=== PATIENT | male | born 1995 ===

== ENCOUNTER 2022-08-30 12:48 | Emergency (ER) | payer OTHER ==
[~2022-08-30] VITALS: Ht 190 cm; Wt 141.0 kg
--- NOTE | 2022-08-30 13:12 | ED Abdominal Pain ---
General Chief Complaint: Abdominal/GI Problems Stated Complaint: ABD AND LOWER BACK PAIN Nursing Triage Note: Pt ambulates to ER with c/o RLQ pain. Patient states he was at work when it started about 30 minutes ago. Pain radiates right lower back area and right groin area. Source of Information: Patient Exam Limitations: No Limitations History of Present Illness Date Seen by Provider: Aug 30, 2022 Time Seen by Provider: 13:00 Initial Comments Patient provides history. Patient is a previous healthy 19-year-old male who presents to the emergency department for evaluation of right flank and right abdominal pain that began approximately 30 to 45 minutes prior to arrival. Patient states the pain was acute in onset and very severe. He states the pain is somewhat better at the time of my exam. Denies any alleviating or aggravating factors. States he had some nausea initially but that has since resolved. Patient was able to urinate after the pain started and denies seeing any blood in the urine. Patient denies any injury to the affected area prior to onset of pain. He has not taken any medications for the symptoms since they began. Denies any history of similar pain. Allergies and Home Medications Allergies Coded Allergies: Penicillins (Verified Allergy, Unknown, 08/30/22) Patient Home Medication List Home Medication List Reviewed: Yes Review of Systems Review of Systems Constitutional: no symptoms reported EENTM: No Symptoms Reported Respiratory: No Symptoms Reported Cardiovascular: No Symptoms Reported Gastrointestinal: See HPI, Abdominal Pain, Nausea Genitourinary: See HPI, Flank Pain Musculoskeletal: no symptoms reported Skin: no symptoms reported Psychiatric/Neurological: No Symptoms Reported Endocrine: No Symptoms Reported Hematologic/Lymphatic: No Symptoms Reported Past Ygyusji-Hkhubx-Xuoheb Hx Patient Social History Tobacco Use?: No Substance use?: No Alcohol Use?: Yes Alcohol Frequency: Once in a while Physical Exam Vital Signs Vital Signs - First Documented 08/30/22 12:56 Temp 36.3 Pulse 86 Resp 24 B/P (MAP) 171/130 (144) Pulse Ox 98 O2 Delivery Room Air Capillary Refill : Less Than 3 Seconds Height/Weight/BMI Height: '" Weight: lbs. oz. kg; 39.00 BMI Method: General Appearance: WD/WN, no apparent distress HEENT: PERRL/EOMI, normal ENT inspection, TMs normal, pharynx normal Neck: non-tender, full range of motion, supple, normal inspection Respiratory: chest non-tender, lungs clear Cardiovascular: regular rate, rhythm Gastrointestinal: normal bowel sounds, soft, tenderness Neurologic/Psychiatric: no motor/sensory deficits, alert, normal mood/affect, oriented x 3 Skin: normal color, warm/dry Progress/Results/Core Measures Results/Orders Lab Results Laboratory Tests Test 08/30/22 13:15 08/30/22 13:56 Range/Units White Blood Count 10.8 4.3-11.0 10^3/uL Red Blood Count 5.18 4.30-5.52 10^6/uL Hemoglobin 14.9 13.3-17.7 g/dL Hematocrit 43 40-54 % Mean Corpuscular Volume 84 80-99 fL Mean Corpuscular Hemoglobin 29 25-34 pg Mean Corpuscular Hemoglobin Concent 34 32-36 g/dL Red Cell Distribution Width 12.8 10.0-14.5 % Platelet Count 293 130-400 10^3/uL Mean Platelet Volume 9.5 9.0-12.2 fL Immature Granulocyte % (Auto) 1 % Neutrophils (%) (Auto) 65 42-75 % Lymphocytes (%) (Auto) 25 12-44 % Monocytes (%) (Auto) 7 0-12 % Eosinophils (%) (Auto) 1 0-10 % Basophils (%) (Auto) 1 0-10 % Neutrophils # (Auto) 7.0 1.8-7.8 X 10^3 Lymphocytes # (Auto) 2.7 1.0-4.0 X 10^3 Monocytes # (Auto) 0.8 0.0-1.0 X 10^3 Eosinophils # (Auto) 0.1 0.0-0.3 10^3/uL Basophils # (Auto) 0.1 0.0-0.1 10^3/uL Immature Granulocyte # (Auto) 0.1 0.0-0.1 10^3/uL Sodium Level 142 135-145 MMOL/L Potassium Level 3.7 3.6-5.0 MMOL/L Chloride Level 107 98-107 MMOL/L Carbon Dioxide Level 27 21-32 MMOL/L Anion Gap 8 5-14 MMOL/L Blood Urea Nitrogen 16 7-18 MG/DL Creatinine 1.08 0.60-1.30 MG/DL Estimat Glomerular Filtration Rate 95 BUN/Creatinine Ratio 15 Glucose Level 134 H 70-105 MG/DL Calcium Level 9.8 8.5-10.1 MG/DL Corrected Calcium 8.5-10.1 MG/DL Total Bilirubin 0.7 0.1-1.0 MG/DL Aspartate Amino Transf (AST/SGOT) 35 H 5-34 U/L Alanine Aminotransferase (ALT/SGPT) 72 H 0-55 U/L Alkaline Phosphatase 60 40-136 U/L Total Protein 7.8 6.4-8.2 GM/DL Albumin 4.7 H 3.2-4.5 GM/DL Urine Color YELLOW Urine Clarity CLEAR Urine pH 5.5 5-9 Urine Specific [place] >=1.030 1.016-1.022 Urine Protein TRACE H NEGATIVE Urine Glucose (UA) NEGATIVE NEGATIVE Urine Ketones NEGATIVE NEGATIVE Urine Nitrite NEGATIVE NEGATIVE Urine Bilirubin NEGATIVE NEGATIVE Urine Urobilinogen 0.2 < = 1.0 MG/DL Urine Leukocyte Esterase NEGATIVE NEGATIVE Urine RBC (Auto) 3+ H NEGATIVE Urine RBC 50-100 H /HPF Urine WBC RARE /HPF Urine Crystals NONE /LPF Urine Bacteria TRACE /HPF Urine Casts NONE /LPF Urine Mucus SMALL H /LPF Urine Culture Indicated NO My Orders Orders - MELANIE KAISER [employer] Cbc With Automated Diff (08/30/22 13:06) Comprehensive Metabolic Panel (08/30/22 13:06) Iv/Invasive Line Insertion .IV INSERT (08/30/22 13:06) Urinalysis (08/30/22 13:06) Ct Abd/Pelvis Wo(Kidney Stone) (08/30/22 13:06) Ketorolac Injection (Toradol Injection) (08/30/22 13:15) Ns Iv 1000 Ml (Sodium Chloride 0.9%) (08/30/22 13:15) Medications Given in ED Current Medications Medications Dose Ordered Sig/Shari Route Start Time Stop Time Status Last Admin Dose Admin Ketorolac Tromethamine 15 mg ONCE ONCE IVP 08/30/22 13:15 08/30/22 13:16 DC 08/30/22 13:21 15 MG Vital Signs/I&O 08/30/22 12:56 Temp 36.3 Pulse 86 Resp 24 B/P (MAP) 171/130 (144) Pulse Ox 98 O2 Delivery Room Air Blood Pressure Mean: 144 Progress Progress Note : Progress Note Patient is nontoxic and well-hydrated on exam. Vital signs are reassuring although there is some moderate hypertension noted. Patient was ambulatory to the room without issue. Patient does have some tenderness to palpation about the lateral right abdomen and right lower quadrant. No bulge or other findings suspicious for inguinal hernia noted on exam. Patient denies any radiation into the scrotum and denies any scrotal redness/swelling. Orders placed for CBC, CMP, urinalysis, CT of the abdomen pelvis, and IV dose of ketorolac as well as normal saline bolus. CBC is unremarkable. CMP without any significant abnormality. Urinalysis notable for hematuria. CT of the abdomen and pelvis reveals right proximal ureteral stone. No significant hydronephrosis noted. There is no evidence of any kidney dysfunction on laboratory evaluation. Patient had marked improvement in the pain with the dose of ketorolac. I discussed supportive care and anticipatory guidance. Patient will be discharged home with a prescription for analgesia, antiemetics, and Flomax. Patient given a urine strainer. Follow-up with PCP. Return precautions for urgent symptomology discussed. Patient verbalized understanding. Departure Impression Primary Impression: Right ureteral calculus Disposition: HOME, SELF-CARE Condition: Stable Departure-Patient Inst. Decision time for Depature: 14:15 Referrals: NO,LOCAL PHYSICIAN (PCP/Family) Primary Care Physician Patient Instructions: Kidney Stone, Adult ED Scripts Hydrocodone Bit/Acetaminophen (HYDROcodone/APAP 5 MG/325 MG TAB) 1 Tab Tab 1 TAB PO Q6H PRN for PAIN-BREAKTHROUGH for 3 Days, #12 TAB 0 Refills Prov: MELANIE KAISER APRN 08/30/22 Ondansetron (Ondansetron Odt) 4 Mg Tab.rapdis 4 MG SL Q4H PRN for NAUSEA/VOMITING for 3 Days, #18 TAB 0 Refills Prov: KAISERMELANIE WOOTEN APRN 08/30/22 Tamsulosin HCl (Flomax) 0.4 Mg Cap 0.4 MG PO DAILY for 5 Days, #5 CAP Prov: MELANIE KAISER APRN 08/30/22 Ibuprofen (Ibuprofen) 600 Mg Tablet 600 MG PO Q6H PRN for PAIN-MILD for 5 Days, #20 TAB 0 Refills Prov: MELANIE KAISER APRN 08/30/22 Work/School Note: Work Release Form Date Seen in the Emergency Department: Aug 30, 2022 Return to Work: Aug 31, 2022 MELANIE KAISER APRN Aug 30, 2022 13:12
[2022-08-30] MEDS ORDERED: NS IV 1000 ML 1,000 ML IV SCH (13:15)
[2022-08-30] MEDS ORDERED: KETOROLAC 15 MG/ML VIAL IVP ONE (13:15)
[2022-08-30 13:23] LABS: BASOPHILS # (AUTO) 0.1 10^3/uL (0.0-0.1); BASOPHILS % (AUTO) 1 % (0-10); EOSINOPHILS # (AUTO) 0.1 10^3/uL (0.0-0.3); EOSINOPHILS % (AUTO) 1 % (0-10); HEMATOCRIT 43 % (40-54); HEMOGLOBIN 14.9 g/dL (13.3-17.7); LYMPHOCYTES # (AUTO) 2.7 X 10^3 (1.0-4.0); LYMPHOCYTES % (AUTO) 25 % (12-44); MEAN CORPUSCULAR HEMOGLOBIN 29 pg (25-34); MEAN CORPUSCULAR HGB CONC 34 g/dL (32-36); MEAN CORPUSCULAR VOLUME 84 fL (80-99); MEAN PLATELET VOLUME 9.5 fL (9.0-12.2); MONOCYTES # (AUTO) 0.8 X 10^3 (0.0-1.0); MONOCYTES % (AUTO) 7 % (0-12); NEUTROPHILS % (AUTO) 65 % (42-75); PLATELET COUNT 293 10^3/uL (130-400); WHITE BLOOD COUNT 10.8 10^3/uL (4.3-11.0)
[2022-08-30 13:36] LABS: ALBUMIN 4.7 GM/DL (3.2-4.5); CHLORIDE 107 MMOL/L (98-107); POTASSIUM 3.7 MMOL/L (3.6-5.0); SODIUM 142 MMOL/L (135-145)
[2022-08-30 13:37] LABS: CALCIUM 9.8 MG/DL (8.5-10.1)
[2022-08-30 13:38] LABS: GLUCOSE 134 MG/DL (70-105); TOTAL PROTEIN 7.8 GM/DL (6.4-8.2)
[2022-08-30 13:40] LABS: BILIRUBIN,TOTAL 0.7 MG/DL (0.1-1.0); CARBON DIOXIDE 27 MMOL/L (21-32)
[2022-08-30 13:42] LABS: ALKALINE PHOSPHATASE 60 U/L (40-136); CREATININE SERUM 1.08 MG/DL (0.60-1.30); GFR ESTIMATED 95
[2022-08-30 13:43] LABS: BUN/CREATININE RATIO 15
[2022-08-30 13:45] LABS: ALANINE AMINOTRANSFERASE 72 U/L (0-55)
--- NOTE | 2022-08-30 13:52 | Diagnostic Imaging Report ---
PROCEDURE: CT urinary tract, rule out kidney stone. TECHNIQUE: Multiple contiguous axial images were obtained through the abdomen and pelvis without the use of intravenous contrast. Auto Exposure Controls were utilized during the CT exam to meet ALARA standards for radiation dose reduction. INDICATION: Right lower quadrant pain radiating to the low back. COMPARISON: No prior studies are available for comparison. FINDINGS: The lung bases are clear. The liver demonstrates diffuse low attenuation, consistent with hepatic steatosis. No liver mass is identified. The gallbladder is unremarkable. No biliary ductal dilatation is seen. Pancreas and spleen are unremarkable. No adrenal mass is identified. No renal calculi are seen. There is approximately 2 to 3 mm calculus in the proximal right ureter near the UPJ. No significant hydronephrosis is seen. No other ureteral or bladder calculi are detected. The aorta is nonaneurysmal. Bowel loops are normal in caliber. There is no ascites. Prostate is unremarkable. Bony structures are nonacute. IMPRESSION: 1. Hepatic steatosis. 2. 2 to 3 mm proximal right ureteric calculus. No significant hydronephrosis is detected. Dictated by: Dictated on workstation # [id number]
[2022-08-30 14:06] LABS: BILIRUBIN,URINE NEGATIVE (NEGATIVE); CLARITY,URINE CLEAR; COLOR,URINE YELLOW; GLUCOSE, URINE (UA) NEGATIVE (NEGATIVE); KETONES,URINE NEGATIVE (NEGATIVE); LEUKOCYTE ESTERASE ,URINE NEGATIVE (NEGATIVE); NITRITE,URINE NEGATIVE (NEGATIVE); PH,URINE 5.5 (5-9); PROTEIN,URINE TRACE (NEGATIVE)
[2022-08-30 14:14] LABS: BACTERIA,URINE TRACE /HPF; RBC,URINE 50-100 /HPF; WBC,URINE RARE /HPF
[2022-08-30] MEDS ORDERED: TMSL.4C PO (14:23)
[2022-08-30] MEDS ORDERED: IBUP-1773 PO (14:23)
[2022-08-30] MEDS ORDERED: ACHD5005 PO (14:23)
[2022-08-30] MEDS ORDERED: ONDA4TAB11 SL (14:23)
[2022-08-30 14:32] VITALS: BP 154/102
== END 2022-08-30 14:32 | disposition home or self-care (01) ==
LOC: ER 12:51
DX: N20.1 Calculus of ureter (principal); R03.0 Elevated blood-pressure reading, without diagnosis of hypertension; Z28.310 Unvaccinated for COVID-19
CPT/HCPCS: 36415; 74176; 80053; 81000; 85025